=== PATIENT | female | born 1950 | race Caucasian/White ===

== ENCOUNTER → 2018-08-13 11:39 | Outpatient (CLI) | payer MEDICARE, SELFPAY ==
--- NOTE | 2018-08-13 | DI.RAD.S_ITS ---
PROCEDURE: XR FOOT RT MIN 3V INDICATIONS: RIGHT FOOT PAIN TECHNIQUE: 3 views of the foot were acquired. COMPARISON: None. FINDINGS: Bones: No fractures or dislocations. No suspicious bony lesions. There are plantar fascia and Achilles tendon insertion spurs at the posterior calcaneus Soft tissues: No tibiotalar joint effusion. Achilles tendon appears normal. IMPRESSION: No trauma found. Plantar fascia and Achilles tendon insertion spurring at the posterior calcaneus consistent with calcific tendinitis at those sites. Dictated by: Urbano Peraza M.D. on 08/13/2018 at 12:20 Approved by: Urbano Peraza M.D. on 08/13/2018 at 12:21
== END ==
PROVIDERS: PCP Family Medicine; Visit Provider Family Medicine
DX: M79.671 Pain in right foot (principal); M77.31 Calcaneal spur, right foot; M76.61 Achilles tendinitis, right leg
CPT/HCPCS: 73630

== ENCOUNTER 2020-10-06 09:38 | Emergency (ER) | payer MEDICARE, SELFPAY ==
[2020-10-06] VITALS (7 sets, daily range): BP systolic 105–119; BP diastolic 60–75; PULSE 91–119; RESP 16; TEMP 36.4; O2SAT 95–97; BMI 38.9
--- NOTE | 2020-10-06 09:58 | DI.RAD.S_ITS ---
PROCEDURE: XR CHEST 1V INDICATIONS: Possible stroke TECHNIQUE: One view of the chest was acquired. COMPARISON: [facility], CR, CHEST 1 VIEW, 07/19/2017, 19:54. [facility], CT, CT HEAD/BRAIN WO CON, 10/06/2020, 10:13. [facility], CR, CHEST 1 VIEW, 08/15/2017, 14:25. FINDINGS: Surgical changes and devices: Right shoulder postoperative changes partially seen. Lungs and pleura: Low lung volumes are noted. This causes a crowded appearance to the lung markings and limits evaluation. Diffuse interstitial prominence is seen. No pneumothorax or pleural effusions are seen. Mediastinum: The cardiac contours are mildly enlarged. The aorta demonstrates calcification and tortuosity. Bones and chest wall: No suspicious bony lesions. Age-appropriate bony degenerative changes are seen. Overlying soft tissues appear unremarkable. IMPRESSION: Mild cardiomegaly and interstitial prominence. Please correlate with patient presentation, physical examination findings, and laboratory values for congestive heart failure. Dictated by: Jules Blanchard M.D. on 10/06/2020 at 9:29 Approved by: Jules Blanchard M.D. on 10/06/2020 at 9:30
--- NOTE | 2020-10-06 09:59 | DI.CT.S_ITS ---
PROCEDURE: CT HEAD/BRAIN WO CON INDICATIONS: R/O CVA LKW Yesterday TECHNIQUE: Noncontrast 4.5 mm thick angled axial sections acquired from the foramen magnum to the vertex, with coronal and sagittal reformats. For radiation dose reduction, the following was used: automated exposure control, adjustment of mA and/or kV according to patient size. COMPARISON: [facility], CT, HEAD WITHOUT CONTRAST, 08/15/2017, 14:18. FINDINGS: Image quality: Excellent. CSF spaces: Basal cisterns are patent. No extra-axial fluid collections. The ventricles are symmetric in size and shape. Brain: No intracranial bleeds or masses. There is mild cerebral volume loss for age, with resultant ventricular and sulcal prominence. There are periventricular and deep white matter chronic small vessel ischemic changes. There is intracranial internal carotid artery atherosclerosis. Skull and face: Calvarium and visualized facial bones appear intact, without suspicious lesions. Sinuses: Visualized sinuses and mastoids are clear. IMPRESSION: No acute intracranial disease process. Dictated by: Peri Gutierrez MD, PhD on 10/06/2020 at 10:30 Approved by: Peri Gutierrez MD, PhD on 10/06/2020 at 11:16
[2020-10-06 10:14] LABS: Add Manual Diff / Slide Review NO; Basophils Absolute Auto 0 /uL (0-100); Basophils Percent Auto 0.4 % (0-2); Eosinophils Absolute Auto 400 /uL (0-450); Eosinophils Percent Auto 3.5 % (2-4); Hemoglobin 11.1 g/dL (12.0-16.0); Lymphocytes Absolute Auto 1100 /uL (1100-4500); Lymphocytes Percent Auto 9.7 % (25-40); Mean Corpuscular HGB Conc 32.5 % (30-36); Mean Corpuscular Hemoglobin 32.4 PG (26-34); Mean Corpuscular Volume 99.5 fL (80-100); Monocytes Absolute Auto 900 /uL (0-900); Monocytes Percent Auto 8.1 % (3-14); Neutrophils Absolute Auto 8800 /uL (1500-7000); Neutrophils Percent Auto 78.3 % (50-75); Platelet Count 242 X10^3/uL (150-400); Red Blood Cell Count 3.42 X10^6/uL (4.0-5.2); Red Cell Distribution Width 13.6 % (11.6-14.8); White Blood Cell Count 11.2 X10^3/uL (4.5-11.0)
[2020-10-06 10:22] LABS: PTT Partial Thromboplastin Tim 59 SECONDS (26.4-36.2)
[2020-10-06 10:25] LABS: Alanine Aminotransferase 22 IU/L (<35); Albumin 4.3 g/dL (3.5-5.0); Albumin Globulin Ratio 1.3 (1.0-2.8); Alkaline Phosphatase 73 U/L (38-126); Aspartate Aminotransferase 28 IU/L (14-36); BUN Creatinine Ratio 26.2 (6-22); Bilirubin Total 0.8 mg/dL (0.2-1.3); Blood Urea Nitrogen 59 mg/dL (7-17); Carbon Dioxide 24 mmol/L (22-32); Chloride 98 mmol/L (98-107); Creatine Kinase 239 U/L (30-135); Estimated Glomerular Filt Rate 21.4 mL/min (>60); Globulin 3.2 g/dL (1.7-4.1); Glucose 140 mg/dL (80-110); HEMOLYSIS < 15 (0-50); Potassium 4.7 mmol/L (3.4-5.1); Sodium 133 mmol/L (137-145); Total Protein 7.5 g/dL (6.3-8.2)
[2020-10-06 10:26] LABS: Prothrombin Time 77.4 SECONDS (10.1-12.7)
[2020-10-06 10:35] LABS: Troponin I < 0.012 ng/mL (0.01-0.034)
[2020-10-06 10:39] LABS: Ethanol (ETOH) < 10 mg/dL
[2020-10-06 10:41] LABS: CKMB % Relative Index 1.9 % (1.5-5.0); Creatine Kinase MB 4.64 ng/mL (<2.37)
--- NOTE | 2020-10-06 10:53 | ED.NEUROSD ---
HPI - Neuro Symptoms/Deficit General Chief Complaint: Neuro Symptoms/Deficit Stated Complaint: slurred speach/fuzzy mind x2 days Time Seen by Provider: 10/06/20 09:57 Source: patient and family (Son) Mode of arrival: Ambulatory Limitations: no limitations History of Present Illness HPI Narrative: Patient is a 70-year-old female here in the emergency department with her son for evaluation of altered mental status. Patient states that she has chronic lower back pain. She was having a particularly bad day yesterday and evening with the discomfort. She had a friend who states that he takes sumatriptan for his back pain and so she took a half of a pill of 1 his medications to help her back. According to the son this some point overnight the patient called her daughter multiple times saying things that did not make sense. Was slurring her words. She was also found wandering around her house without any clothes on. They did not bring her in to be seen at that point. She arrived here this morning after falling back asleep. Patient's son states that she is back to normal. The patient does not necessarily remember anything that happened last evening. She currently has no symptoms. On Anticoagulants: Yes (warfarin Afib) Related Data Home Medications Medication Instructions Recorded Confirmed acyclovir 800 mg PO BID #0 07/16/17 fluticasone propionate 1 spray INTRANASAL QDAY #0 07/16/17 hydrochlorothiazide 50 mg PO QDAY #0 07/16/17 metoprolol succinate [Toprol XL] 25 mg PO QDAY #0 07/16/17 triamcinolone acetonide 1 mana TOPICAL BID #0 07/16/17 zolpidem [Ambien] 10 mg PO HS #0 07/16/17 Previous Rx's Medication Instructions Recorded hydroxyzine pamoate [Vistaril] 25 - 50 mg PO Q4HP PRN #60 cap 07/19/17 oxycodone-acetaminophen [Percocet] 1 - 2 tab PO Q4HP PRN #60 tab 07/19/17 furosemide [Lasix] 20 mg PO QDAY #30 tab 08/15/17 Allergies Allergy/AdvReac Type Severity Reaction Status Date / Time bee venom protein (honey bee) Allergy Unknown Unverified 02/06/18 13:04 [BEE VENOM PROTEIN (HONEY BEE)] blueberry [BLUEBERRY] Allergy Unknown Unverified 02/06/18 13:04 lactose [LACTOSE] AdvReac Unknown Unverified 02/06/18 13:04 wheat [WHEAT] AdvReac Unknown Unverified 02/06/18 13:04 Review of Systems Constitutional Constitutional: Denies chills, Denies fatigue, Denies fever(s) and Denies headache(s) Eyes Eyes: Denies blurry vision ENT Ears, Nose, Mouth, and Throat: Denies vertigo, Denies dizziness and Denies headache(s) Cardiovascular Cardiovascular: Denies chest pain and Denies dyspnea Respiratory Respiratory: Denies dyspnea Gastrointestinal Gastrointestinal: Denies abdominal pain, Denies nausea and Denies vomiting Genitourinary Genitourinary: Denies dysuria Genitourinary: Denies dysuria Musculoskeletal Musculoskeletal: Denies arthralgias and Denies myalgias Integumentary/Breasts Skin/Breast: Denies rash Neurologic Neurologic: Reports abnormal speech, Reports behavioral changes, Reports confusion, Denies vertigo, Denies dizziness and Denies headache(s) Psychiatric Psychiatric: Reports behavioral changes and Reports confusion Endocrine Endocrine: Denies fatigue Hematologic/Lymphatic Hematologic/Lymphatic: Denies easy bleeding and Denies easy bruising Allergic/Immunologic Allergic/Immunologic: Denies urticaria Patient History Medical History Atrial fibrillation with rapid ventricular response Heart failure Social History lives independently: Yes Exam Initial Vital Signs Initial Vital Signs: Vital Signs Temperature 97.6 F 10/06/20 09:50 Pulse Rate 119 H 10/06/20 09:50 Respiratory Rate 16 10/06/20 09:50 Blood Pressure 119/75 10/06/20 09:50 Pulse Oximetry 97 10/06/20 09:50 Const General: cooperative and comfortable Limitations: mental status not altered [facility] Head: normal to inspection and normocephalic Resp Effort & Inspection: normal respiratory effort Auscultation: clear to auscultation bilaterally Cardio Rate: tachycardic Rhythm: abnormal rhythm GI Inspection: non-distended Skin Lesions: no lesions Rashes: no rashes Neuro General: patient alert, patient awake and patient oriented x3 Cranial Nerves: CN's II-XI intact bilaterally Cognition: normal cognition Speech: speech normal Sensory Exam: no sensory deficits noted Extrem General: normal to inspection and capillary refill normal Psych Appearance: grossly normal and well kempt Scores NIH Stroke Scale Level of Conciousness: Alert, keenly responsive Ask month/age: Answers both questions correctly. Best gaze horizontal: Normal Visual walsh: No visual loss Facial palsy: Normal symetrical movement Left arm drift: No drift for full 10 sec Right arm drift: No drift for full 10 sec Left leg drift: No drift for full 5 sec Right leg drift: No drift for full 5 sec Limb ataxia: Absent Sensory on face/arms/legs: Normal, no sensory loss Best language: No aphasia, normal Dysarthria: Normal Extinction or inattention: No abnormality Course Orders Ordered: ED Orders 10/06/20 09:58 XR chest 1V Stat EKG-12 Lead Stat 10/06/20 09:59 CT head/brain wo con Stat 10/06/20 10:04 Complete Blood Count AUTO DIFF Stat Comprehensive Metabolic Panel Stat Ethanol (ETOH) Stat Partial Thromboplastin Time Stat Prothrombin Time INR Stat Troponin & CK Cardiac Panel Stat Vital Signs Vital signs: Vital Signs - 8 hr 10/06/20 09:50 10/06/20 09:56 10/06/20 10:00 Temperature 97.6 F Pulse Rate 119 H 96 H 100 H Respiratory Rate 16 Blood Pressure 119/75 105/61 Pulse Oximetry 97 97 97 10/06/20 10:29 10/06/20 10:30 Temperature Pulse Rate 103 H 91 H Respiratory Rate Blood Pressure 114/60 118/71 Pulse Oximetry 96 96 MDM - Neuro Symptoms/Deficit Lab Data Attestation: I reviewed the patient's lab results. Result diagrams: 10/06/20 10:04 10/06/20 10:04 Labs: Lab Results 10/06/20 10/06/20 10/06/20 Range/Units 10:04 10:04 10:04 WBC 11.2 H (4.5-11.0) X10^3/uL RBC 3.42 L (4.0-5.2) X10^6/uL Hgb 11.1 L (12.0-16.0) g/dL Hct 34.0 L (36-46) % MCV 99.5 (80-100) fL MCH 32.4 (26-34) PG MCHC 32.5 (30-36) % RDW 13.6 (11.6-14.8) % Plt Count 242 (150-400) X10^3/uL Neut % (Auto) 78.3 H (50-75) % Lymph % (Auto) 9.7 L (25-40) % [place] % (Auto) 8.1 (3-14) % Eos % (Auto) 3.5 (2-4) % Baso % (Auto) 0.4 (0-2) % Neut # (Auto) 8800 H (8453-6281) /uL Lymph # (Auto) 1100 (4033-6727) /uL [place] # (Auto) 900 (0-900) /uL Eos # (Auto) 400 (0-450) /uL Baso # (Auto) 0 (0-100) /uL PT 77.4 H (10.1-12.7) SECONDS INR 7.0 H* (0.9-1.3) APTT 59 H (26.4-36.2) SECONDS Sodium 133 L (137-145) mmol/L Potassium 4.7 (3.4-5.1) mmol/L Chloride 98 (98-107) mmol/L Carbon Dioxide 24 (22-32) mmol/L BUN 59 H (7-17) mg/dL Creatinine 2.25 H (0.52-1.04) mg/dL Estimated GFR 21.4 L (>60) mL/min BUN/Creatinine Ratio 26.2 H (6-22) Glucose 140 H (80-110) mg/dL Calcium 9.0 (8.4-10.2) mg/dL Total Bilirubin 0.8 (0.2-1.3) mg/dL AST 28 (14-36) IU/L ALT 22 (<35) IU/L Alkaline Phosphatase 73 (38-126) U/L Total Creatine Kinase 239 H (30-135) U/L CK-MB (CK-2) 4.64 H (<2.37) ng/mL CK-MB (CK-2) Rel Index 1.9 (1.5-5.0) % Troponin I < 0.012 (0.01-0.034) ng/mL Total Protein 7.5 (6.3-8.2) g/dL Albumin 4.3 (3.5-5.0) g/dL Globulin 3.2 (1.7-4.1) g/dL Albumin/Globulin Ratio 1.3 (1.0-2.8) Ethyl Alcohol ( - 10) mg/dL 10/06/20 Range/Units 10:04 WBC (4.5-11.0) X10^3/uL RBC (4.0-5.2) X10^6/uL Hgb (12.0-16.0) g/dL Hct (36-46) % MCV (80-100) fL MCH (26-34) PG MCHC (30-36) % RDW (11.6-14.8) % Plt Count (150-400) X10^3/uL Neut % (Auto) (50-75) % Lymph % (Auto) (25-40) % [place] % (Auto) (3-14) % Eos % (Auto) (2-4) % Baso % (Auto) (0-2) % Neut # (Auto) (2405-1156) /uL Lymph # (Auto) (3180-4689) /uL [place] # (Auto) (0-900) /uL Eos # (Auto) (0-450) /uL Baso # (Auto) (0-100) /uL PT (10.1-12.7) SECONDS INR (0.9-1.3) APTT (26.4-36.2) SECONDS Sodium (137-145) mmol/L Potassium (3.4-5.1) mmol/L Chloride (98-107) mmol/L Carbon Dioxide (22-32) mmol/L BUN (7-17) mg/dL Creatinine (0.52-1.04) mg/dL Estimated GFR (>60) mL/min BUN/Creatinine Ratio (6-22) Glucose (80-110) mg/dL Calcium (8.4-10.2) mg/dL Total Bilirubin (0.2-1.3) mg/dL AST (14-36) IU/L ALT (<35) IU/L Alkaline Phosphatase (38-126) U/L Total Creatine Kinase (30-135) U/L CK-MB (CK-2) (<2.37) ng/mL CK-MB (CK-2) Rel Index (1.5-5.0) % Troponin I (0.01-0.034) ng/mL Total Protein (6.3-8.2) g/dL Albumin (3.5-5.0) g/dL Globulin (1.7-4.1) g/dL Albumin/Globulin Ratio (1.0-2.8) Ethyl Alcohol < 10 ( - 10) mg/dL Urine Dip Bedside Urine Glucose Negative Bedside Urine Bilirubin - Negative Bedside Urine Ketone - Negative Urine Specific [place] 1.020 Bedside Urine Occult Blood - Negative Bedside Urine pH 6.0 Bedside Urine Protein - Negative Bedside Urine Urobilinogen - Negative Bedside Urine Nitrite - Negative Bedside Urine Leukocytes - Negative Esterase Imaging Data CT scan - head: Radiologist's Impression: [address] [id number] Scan ReportSigned Patient: Christiana Keenan GMR#: [id number]: 8Acct:[id number]/Sex: 70 / FDate of Service: 10/06/20Loc: EDAccession Number: [id number] Procedure: CT head/brain wo con Ordering Provider: Abhijeet Pearson D.O. PROCEDURE: CT HEAD/BRAIN WO CON INDICATIONS: R/O CVA LKW Yesterday TECHNIQUE: Noncontrast 4.5 mm thick angled axial sections acquired from the foramen magnum to the vertex, with coronal and sagittal reformats. For radiation dose reduction, the following was used: automated exposure control, adjustment of mA and/or kV according to patient size. COMPARISON: [facility], CT, HEAD WITHOUT CONTRAST, 08/15/2017, 14:18. FINDINGS: Image quality: Excellent. CSF spaces: Basal cisterns are patent. No extra-axial fluid collections. The ventricles are symmetric in size and shape. Brain: No intracranial bleeds or masses. There is mild cerebral volume loss for age, with resultant ventricular and sulcal prominence. There are periventricular and deep white matter chronic small vessel ischemic changes. There is intracranial internal carotid artery atherosclerosis. Skull and face: Calvarium and visualized facial bones appear intact, without suspicious lesions. Sinuses: Visualized sinuses and mastoids are clear. IMPRESSION: No acute intracranial disease process. Dictated by: Peri Gutierrez MD, PhD on 10/06/2020 at 10:30 Approved by: Peri Gutierrez MD, PhD on 10/06/2020 at 11:16 ECG Data Attestation: I personally reviewed and interpreted this ECG as follows: Prior ECG tracings: not available for review Interpretation: Atrial fibrillation Ventricular rate of 1 0 to Normal axis Normal QRS Normal QTC No ST to T-wave changes MDM Narrative Medical decision making narrative: Patient has no symptoms here in the emergency department. Her head CT is unremarkable. She has a history of AFib and is in AFib here in the ER. She also has a supratherapeutic INR. She has no signs of active bleeding. She states that they have had problems controlling her INR over the past several weeks. She was instructed she needs to hold taking this medication until she talks with her primary doctor later this week to discuss retesting and then when to restart the medication. Unsure for symptoms last night were related to the new medication that she took. We also discussed that she potentially could have had a TIA given the fact that she has atrial fibrillation. She has had workups for TIAs in the past. I feel patient can be discharged home and follow-up with her primary doctor. She was informed that she should not take any medications under not specifically prescribed to her. She was given return precautions. She expressed understanding and agreement. Discharge Plan Departure Patient Disposition: Home Clinical Impression: Transient cerebral ischemia, Supratherapeutic INR, Atrial fibrillation Instructions: DI for Transient Ischemic Attack Activity Restrictions/Additional Instructions: I do recommend that you talk with your primary doctor and also your funeral attendant about her atrial fibrillation and to discuss the indications for either medications or an ablation. Your INR (Coumadin/warfarin level) was elevated today. I recommend that you would hold on taking this medication until you talk with your primary doctor. Return to the emergency department for any new or worsening symptoms Prescriptions: No Action hydrochlorothiazide 50 MG tablet 50 mg PO QDAY Qty: 0 RF: 0 acyclovir 800 MG tablet 800 mg PO BID Qty: 0 RF: 0 zolpidem [Ambien] 10 MG tablet 10 mg PO HS Qty: 0 RF: 0 fluticasone propionate 16 GM spray,suspension 1 spray Intranasal QDAY Qty: 0 RF: 0 metoprolol succinate [Toprol XL] 25 MG tablet extended release 24 hr 25 mg PO QDAY Qty: 0 RF: 0 triamcinolone acetonide 0.1 % cream 1 mana Topical BID Qty: 0 RF: 0 oxycodone-acetaminophen [Percocet] 5 MG/325 MG tablet 1 - 2 tab PO Q4HP PRNQty: 60 RF: 0 hydroxyzine pamoate [Vistaril] 25 MG capsule 25 - 50 mg PO Q4HP PRNQty: 60 RF: 0 furosemide [Lasix] 20 MG tablet 20 mg PO QDAY Qty: 30 RF: 0 Referrals: Shankar Buckner MD [Primary Care Provider] -
== END 2020-10-06 12:03 | disposition home or self-care (01) ==
PROVIDERS: Emergency Provider Emergency Medicine; PCP Family Medicine
DX: G45.9 Transient cerebral ischemic attack, unspecified (principal); R79.1 Abnormal coagulation profile; I48.91 Unspecified atrial fibrillation; Z79.01 Long term (current) use of anticoagulants; R41.0 Disorientation, unspecified; M54.5 Low back pain; I50.9 Heart failure, unspecified; R00.0 Tachycardia, unspecified
CPT/HCPCS: 36415; 70450; 71045; 80053; 80320; 81003; 82550; 82553; 84484; 85025; 85610; 85730; 93005; 93010; 99284

== ENCOUNTER → 2023-01-16 09:14 | Outpatient (CLI) | payer MEDICARE, SELFPAY ==
[2023-01-16 09:41] LABS: INR 1.5 (0.9-1.3); Prothrombin Time 17.4 SECONDS (10.1-12.7)
[2023-01-16 09:43] LABS: PTT Partial Thromboplastin Tim 34 SECONDS (26-36)
== END ==
PROVIDERS: PCP Family Medicine; Referring Provider Family Medicine; Visit Provider Family Medicine
DX: I48.91 Unspecified atrial fibrillation (principal)
CPT/HCPCS: 36415; 85610; 85730